=== PATIENT | male | born 1955 | race Caucasian/White ===

== ENCOUNTER 2017-05-27 18:59 | Emergency (ER) | payer OTHER ==
[~2017-05-27] VITALS: Ht 172.7 cm; Wt 67.1 kg
[2017-05-27 19:01] VITALS: BP 149/88
[2017-05-27] MEDS ORDERED: HYDROcodone/APAP 5/325 TABLET ONE (20:18)
[2017-05-27] MEDS ORDERED: IBUPROFEN 200 MG TABLET ONE (20:19)
[2017-05-27] MEDS ORDERED: ONDANSETRON ODT 4 MG ONE (20:19)
[2017-05-27] MEDS ORDERED: HYDROcodone/APAP 5/325 TABLET PO ONE (20:30)
[2017-05-27] MEDS ORDERED: IBUPROFEN 200 MG TABLET PO ONE (20:30)
[2017-05-27] MEDS ORDERED: ONDANSETRON ODT 4 MG PO ONE (20:30)
== END 2017-05-27 20:43 | disposition home or self-care (01) ==
LOC: ED 20:00
DX: S42.022A Displaced fracture of shaft of left clavicle, initial encounter for closed fracture (principal); Z88.0 Allergy status to penicillin; V29.9XXA Motorcycle rider (driver) (passenger) injured in unspecified traffic accident, initial encounter; Y93.89 Activity, other specified; Y92.89 Other specified places as the place of occurrence of the external cause; Y99.8 Other external cause status
CPT/HCPCS: 72050; 73000; 99284; Q0162